=== PATIENT | female | born 1990 | race Caucasian/White ===

== ENCOUNTER 2020-03-06 16:08 | Outpatient (REF) | payer OTHER, SELFPAY ==
[2020-03-06 19:24] LABS: LDL CHOLESTEROL 108 mg/dL (<100); TSH 2.02 uIU/mL (0.36-3.74)
[2020-03-06 19:45] LABS: FREE T4 0.97 ng/dL (0.76-1.46)
[2020-03-07 16:54] LABS: T3, Total 126 ng/dL (97-169)
== END 2020-03-06 16:28 ==
LOC: NCHCN 16:08
PROVIDERS: Student in an Organized Health Care Education/Training Program; Visit Provider Nurse Practitioner Family
DX: E03.9 Hypothyroidism, unspecified (principal)
CPT/HCPCS: 83721; 84439; 84443; 84480

== ENCOUNTER 2020-04-09 22:15 | Outpatient (REF) | payer OTHER, SELFPAY ==
[2020-04-11 14:54] LABS: COVID-19 RT-PCR Result NEGATIVE (Negative)
== END 2020-04-09 22:35 ==
LOC: NCHCN 22:15
PROVIDERS: Visit Provider Internal Medicine
DX: Z11.59 Encounter for screening for other viral diseases (principal)
CPT/HCPCS: U0003

== ENCOUNTER 2020-04-15 13:25 | Outpatient (REF) | payer OTHER, SELFPAY ==
[2020-04-16 03:42] LABS: COVID-19 RT-PCR UVMMC Result Negative (Negative)
== END 2020-04-15 13:45 ==
LOC: NCHCN 13:25
PROVIDERS: Visit Provider Nurse Practitioner Family
DX: Z11.59 Encounter for screening for other viral diseases (principal)
CPT/HCPCS: U0003

== ENCOUNTER 2020-05-07 12:28 | Outpatient (REF) | payer OTHER, SELFPAY ==
[2020-05-07 19:56] LABS: FREE T4 1.13 ng/dL (0.76-1.46); TSH 0.27 uIU/mL (0.36-3.74)
[2020-05-08 18:01] LABS: T3, Total 199 ng/dL (97-169)
== END 2020-05-07 12:48 ==
LOC: LBN 12:28
PROVIDERS: Visit Provider Student in an Organized Health Care Education/Training Program
DX: E03.9 Hypothyroidism, unspecified (principal)
CPT/HCPCS: 84439; 84443; 84480

== ENCOUNTER 2020-06-11 10:03 | Outpatient (REF) | payer OTHER, SELFPAY ==
[2020-06-11 21:54] LABS: HCT 41.8 % (36.0-46.0); HGB 13.6 g/dL (11.2-15.7); MCH 29.4 pg (27.0-33.0); MCHC 32.5 % (32.0-36.0); MCV 90.3 fL (80-95); Platelet Count 268 10^3/uL (130-400); RBC 4.63 10^6/uL (3.93-5.22); RDW 12.1 % (11.7-14.6); WBC 4.69 10^3/uL (4.4-10.8)
[2020-06-11 22:22] LABS: Iron 74 ug/dL (50-170)
[2020-06-11 22:34] LABS: ALT 23 U/L (14-59); AST 15 U/L (15-37); Albumin 4.4 g/dL (3.4-5.0); Alkaline Phosphatase 54 U/L (46-116); Anion Gap 9.4 mmol/L (3-11); BUN 14 mg/dL (7-18); Bilirubin, Total 0.2 mg/dL (0.2-1.0); C-Reactive Protein 0.37 mg/dL (0.0-0.3); CO2 25.6 mmol/L (21.0-32.0); CREATININE 0.78 mg/dL (0.55-1.02); Calcium 8.7 mg/dL (8.5-10.1); Chloride 104 mmol/L (98-107); Glucose 96 mg/dL (74-106); Potassium 4.2 mmol/L (3.5-5.1); Sodium 139 mmol/L (136-145); Total Protein 7.3 g/dL (6.4-8.2)
[2020-06-11 22:39] LABS: ESR 23 mm/hr (0-20)
[2020-06-12 01:18] LABS: Calculated LDL 135 mg/dL (<100); Cholesterol 194 mg/dL (<200); HDL Cholesterol 50 mg/dL (40-60); Triglyceride 49 mg/dL (<150); Vitamin B12 1907 pg/mL (193-986)
== END 2020-06-11 10:23 ==
LOC: NCHCN 10:03
PROVIDERS: PCP Nurse Practitioner Family; Visit Provider Nurse Practitioner Family
DX: R53.83 Other fatigue (principal); E89.0 Postprocedural hypothyroidism
CPT/HCPCS: 80053; 80061; 85027; 85652; 82607; 83540; 86140

== ENCOUNTER 2020-08-05 09:39 | Outpatient (REF) | payer OTHER, SELFPAY ==
[2020-08-05 20:31] LABS: Abs Immature Grans 0.01 10^3/uL (0.0-0.06); Absolute Basophil Count 0.02 10^3/uL (0.0-0.2); Absolute Eosinophil Count 0.09 10^3/uL (0.0-0.7); Absolute Lymphocyte Count 1.16 10^3/uL (1.2-3.4); Absolute Monocyte Count 0.45 10^3/uL (0.1-0.8); Absolute Neutrophil Count 3.23 10^3/uL (1.2-6.7); Basophils % 0.4; Eosinophils % 1.8; HCT 38.4 % (36.0-46.0); HGB 12.8 g/dL (11.2-15.7); Immature Grans % 0.2; Lymphocytes % 23.4; MCH 29.9 pg (27.0-33.0); MCHC 33.3 % (32.0-36.0); MCV 89.7 fL (80-95); MPV 10.8 fL (8.0-11.0); Monocytes % 9.1; Neutrophils % 65.1; Nucleated RBC 0 %; Platelet Count 287 10^3/uL (130-400); RBC 4.28 10^6/uL (3.93-5.22); RDW 13.1 % (11.7-14.6); RDW-SD 42.9 fL; WBC 4.96 10^3/uL (4.4-10.8)
[2020-08-05 20:55] LABS: Iron 71 ug/dL (50-170); Total Iron Binding Capacity 344 ug/dL (250-450); Transferrin Sat 21 % (15-50)
[2020-08-05 21:02] LABS: Ferritin 72 ng/mL (8-252); TSH 0.73 uIU/mL (0.36-3.74)
[2020-08-06 18:01] LABS: T3, Total 167 ng/dL (97-169)
[2020-08-08 03:36] LABS: SARS-CoV-2 RNA Undetected (Undetected); SARS-CoV-2 Specimen Source Nasal
== END 2020-08-05 09:59 ==
LOC: NCHCN 09:39
PROVIDERS: Internal Medicine; PCP Nurse Practitioner Family; Visit Provider Nurse Practitioner Family
DX: F41.8 Other specified anxiety disorders (principal); E89.0 Postprocedural hypothyroidism; Z11.59 Encounter for screening for other viral diseases
CPT/HCPCS: U0003; 82728; 83540; 83550; 84439; 84443; 84480; 85025

== ENCOUNTER 2020-08-21 11:36 | Outpatient (REF) | payer OTHER, SELFPAY | END 2020-08-21 11:56 | LOC: NCHCN 11:36 | PROVIDERS: PCP Nurse Practitioner Family; Visit Provider Nurse Practitioner Family | DX: N30.00 Acute cystitis without hematuria (principal) | CPT/HCPCS: 87077; 87086; 87186 ==

== ENCOUNTER 2020-09-10 17:31 | Outpatient (REF) | payer OTHER, SELFPAY | END 2020-09-10 17:51 | LOC: NCHCN 17:31 | PROVIDERS: PCP Nurse Practitioner Family; Visit Provider Nurse Practitioner Family | DX: R30.0 Dysuria (principal) | CPT/HCPCS: 87480; 87510; 87660 ==

== ENCOUNTER 2020-09-18 19:48 | Outpatient (REF) | payer SELFPAY ==
[2020-09-21 11:46] LABS: SARS-CoV-2 RNA Not Detected (NotDetected); SARS-CoV-2 RNA Source Nasal/Nares
== END 2020-09-18 20:08 ==
LOC: NCHCN 19:48
PROVIDERS: PCP Nurse Practitioner Family; Visit Provider Nurse Practitioner Family
DX: Z20.828 Contact with and (suspected) exposure to other viral communicable diseases (principal)
CPT/HCPCS: U0003

== ENCOUNTER 2020-10-01 13:53 | Outpatient (REF) | payer OTHER, SELFPAY ==
[2020-10-05 17:32] LABS: SARS-CoV-2 RNA Undetected (Undetected); SARS-CoV-2 Specimen Source Nasal
== END 2020-10-01 14:13 ==
LOC: NCHCN 13:53
PROVIDERS: PCP Nurse Practitioner Family; Visit Provider Nurse Practitioner Family
DX: Z11.59 Encounter for screening for other viral diseases (principal)
CPT/HCPCS: U0003

== ENCOUNTER 2020-11-12 15:08 | Outpatient (REF) | payer OTHER, SELFPAY ==
[2020-11-12 20:54] LABS: FREE T4 1.21 ng/dL (0.76-1.46); TSH 0.47 uIU/mL (0.36-3.74)
[2020-11-13 17:20] LABS: T3, Total 216 ng/dL (97-169)
== END 2020-11-12 15:28 ==
LOC: NCHCN 15:08
PROVIDERS: PCP Nurse Practitioner Family; Visit Provider Physician Assistant
DX: E89.0 Postprocedural hypothyroidism (principal)
CPT/HCPCS: 84439; 84443; 84480

== ENCOUNTER 2020-11-24 12:54 | Outpatient (REF) | payer OTHER, SELFPAY ==
[2020-11-25 21:53] LABS: COVID-19 RT-PCR Result NEGATIVE (Negative)
== END 2020-11-24 13:14 ==
LOC: NCHCN 12:54
PROVIDERS: PCP Nurse Practitioner Family; Visit Provider Internal Medicine
DX: Z20.822 Contact with and (suspected) exposure to COVID-19 (principal)
CPT/HCPCS: U0003

== ENCOUNTER 2020-12-09 14:01 | Outpatient (REF) | payer OTHER, SELFPAY ==
[2020-12-10 18:36] LABS: COVID-19 RT-PCR UVMMC Result Negative (Negative)
== END 2020-12-09 14:21 ==
LOC: NCHCN 14:01
PROVIDERS: PCP Nurse Practitioner Family; Visit Provider Nurse Practitioner Family
DX: Z20.828 Contact with and (suspected) exposure to other viral communicable diseases (principal)
CPT/HCPCS: U0003

== ENCOUNTER 2020-12-19 19:02 | Outpatient (REF) | payer OTHER, SELFPAY ==
[2020-12-19 19:44] LABS: FREE T4 1.44 ng/dL (0.76-1.46); TSH 0.58 uIU/mL (0.36-3.74)
[2020-12-20 22:48] LABS: T3, Total 130 ng/dL (97-169)
== END 2020-12-19 19:03 | disposition home or self-care (01) ==
LOC: NCHCN 19:02
PROVIDERS: PCP Nurse Practitioner Family; Visit Provider Internal Medicine
DX: E89.0 Postprocedural hypothyroidism (principal)
CPT/HCPCS: 84439; 84443; 84480

== ENCOUNTER 2021-01-12 18:48 | Outpatient (REF) | payer OTHER, SELFPAY ==
[2021-01-14 12:25] LABS: COVID-19 RT-PCR UVMMC Result Negative (Negative)
== END 2021-01-12 18:49 | disposition home or self-care (01) ==
LOC: NCHCN 18:48
PROVIDERS: PCP Nurse Practitioner Family; Visit Provider Internal Medicine
DX: Z20.828 Contact with and (suspected) exposure to other viral communicable diseases (principal)
CPT/HCPCS: U0003

== ENCOUNTER 2021-03-03 18:56 | Outpatient (REF) | payer OTHER, SELFPAY ==
[2021-03-04 01:29] LABS: COVID-19 RT-PCR UVMMC Result Negative (Negative)
== END 2021-03-03 18:57 | disposition home or self-care (01) ==
LOC: NCHCN 18:56
PROVIDERS: PCP Nurse Practitioner Family; Visit Provider Nurse Practitioner Family
DX: Z20.822 Contact with and (suspected) exposure to COVID-19 (principal)
CPT/HCPCS: U0003

== ENCOUNTER 2021-03-10 13:24 | Outpatient (REF) | payer OTHER, SELFPAY ==
[2021-03-10 17:11] LABS: FREE T4 0.89 ng/dL (0.76-1.46); TSH 13.86 uIU/mL (0.36-3.74)
[2021-03-10 21:59] LABS: T3,Free 2.5 pg/mL (2.8-5.3)
[2021-03-10 22:13] LABS: T3, Total 100 ng/dL (97-169)
== END 2021-03-10 13:25 | disposition home or self-care (01) ==
LOC: LBN 13:24
PROVIDERS: PCP Nurse Practitioner Family; Visit Provider Internal Medicine Endocrinology, Diabetes & Metabolism
DX: E03.9 Hypothyroidism, unspecified (principal); C73 Malignant neoplasm of thyroid gland
CPT/HCPCS: 84439; 84443; 84480; 84481

== ENCOUNTER 2021-05-13 13:47 | Outpatient (REF) | payer OTHER, SELFPAY ==
[2021-05-13 21:16] LABS: FREE T4 0.87 ng/dL (0.76-1.46)
[2021-05-13 21:19] LABS: TSH 37.24 uIU/mL (0.36-3.74)
== END 2021-05-13 13:48 | disposition home or self-care (01) ==
LOC: NCHCN 13:47
PROVIDERS: Internal Medicine Endocrinology, Diabetes & Metabolism; PCP Nurse Practitioner Family; Visit Provider Internal Medicine
DX: E89.0 Postprocedural hypothyroidism; Z85.850 Personal history of malignant neoplasm of thyroid
CPT/HCPCS: 84439; 84443

== ENCOUNTER 2021-06-19 17:44 | Outpatient (REF) | payer OTHER, SELFPAY ==
[2021-06-19 18:50] LABS: TSH 10.54 uIU/mL (0.36-3.74)
== END 2021-06-19 17:45 | disposition home or self-care (01) ==
LOC: NCHCN 17:44
PROVIDERS: PCP Nurse Practitioner Family; Visit Provider Internal Medicine
DX: E89.0 Postprocedural hypothyroidism (principal)
CPT/HCPCS: 84443

== ENCOUNTER 2021-07-22 14:35 | Outpatient (REF) | payer OTHER, SELFPAY | END 2021-07-22 14:36 | disposition home or self-care (01) | LOC: NCHCN 14:35 | PROVIDERS: PCP Nurse Practitioner Family; Referring Provider Nurse Practitioner Family; Visit Provider Nurse Practitioner Family | DX: N30.00 Acute cystitis without hematuria (principal) | CPT/HCPCS: 87086 ==

== ENCOUNTER 2021-07-29 12:33 | Outpatient (REF) | payer OTHER, SELFPAY ==
[2021-07-29 20:36] LABS: ALT 25 U/L (14-59); AST 16 U/L (15-37); Albumin 3.8 g/dL (3.4-5.0); Alkaline Phosphatase 37 U/L (46-116); Anion Gap 9.5 mmol/L (3-11); BUN 11 mg/dL (7-18); Bilirubin, Total 0.3 mg/dL (0.2-1.0); CO2 26.5 mmol/L (21.0-32.0); CREATININE 0.9 mg/dL (0.55-1.02); Calcium 8.9 mg/dL (8.5-10.1); Chloride 103 mmol/L (98-107); Glucose 85 mg/dL (74-106); Potassium 4.4 mmol/L (3.5-5.1); Sodium 139 mmol/L (136-145); TSH 38.42 uIU/mL (0.36-3.74); Total Protein 7.3 g/dL (6.4-8.2)
== END 2021-07-29 12:34 | disposition home or self-care (01) ==
LOC: NCHCN 12:33
PROVIDERS: PCP Nurse Practitioner Family; Visit Provider Internal Medicine
DX: E89.0 Postprocedural hypothyroidism (principal)
CPT/HCPCS: 80053; 84443

== ENCOUNTER 2021-07-30 17:03 | Outpatient (REF) | payer OTHER, SELFPAY ==
[2021-07-30 19:06] LABS: Abs Immature Grans 0.02 10^3/uL (0.0-0.06); Absolute Basophil Count 0.04 10^3/uL (0.0-0.2); Absolute Eosinophil Count 0.01 10^3/uL (0.0-0.7); Absolute Lymphocyte Count 1.73 10^3/uL (1.2-3.4); Absolute Monocyte Count 0.42 10^3/uL (0.1-0.8); Absolute Neutrophil Count 5.12 10^3/uL (1.2-6.7); Basophils % 0.5; Eosinophils % 0.1; HCT 39.9 % (36.0-46.0); Immature Grans % 0.3; Lymphocytes % 23.6; MCH 29.6 pg (27.0-33.0); MCHC 32.6 % (32.0-36.0); MCV 90.9 fL (80-95); MPV 11.6 fL (8.0-11.0); Monocytes % 5.7; Neutrophils % 69.8; Nucleated RBC 0 %; Platelet Count 274 10^3/uL (130-400); RBC 4.39 10^6/uL (3.93-5.22); RDW 11.9 % (11.7-14.6); RDW-SD 39.8 fL; WBC 7.34 10^3/uL (4.4-10.8)
== END 2021-07-30 17:04 | disposition home or self-care (01) ==
LOC: NCHCN 17:03
PROVIDERS: PCP Nurse Practitioner Family; Visit Provider Nurse Practitioner Family
DX: R10.11 Right upper quadrant pain (principal)
CPT/HCPCS: 85025

== ENCOUNTER 2021-09-18 12:47 | Outpatient (REF) | payer OTHER, SELFPAY ==
[2021-09-18 19:33] LABS: TSH 3.12 uIU/mL (0.36-3.74)
== END 2021-09-18 12:48 | disposition home or self-care (01) ==
LOC: NCHCN 12:47
PROVIDERS: PCP Nurse Practitioner Family; Visit Provider Internal Medicine
DX: E89.0 Postprocedural hypothyroidism (principal)
CPT/HCPCS: 84443

== ENCOUNTER 2021-10-26 19:09 | Outpatient (REF) | payer OTHER, SELFPAY ==
[2021-10-27 21:22] LABS: COVID-19 RT-PCR UVMMC Result Negative (Negative)
== END 2021-10-26 19:10 | disposition home or self-care (01) ==
LOC: NCHCN 19:09
PROVIDERS: PCP Nurse Practitioner Family; Visit Provider Nurse Practitioner Family
DX: Z20.822 Contact with and (suspected) exposure to COVID-19 (principal)
CPT/HCPCS: U0003

== ENCOUNTER 2021-11-10 17:54 | Outpatient (REF) | payer OTHER, SELFPAY ==
[2021-11-10 20:51] LABS: TSH 3.67 uIU/mL (0.36-3.74)
== END 2021-11-10 17:55 | disposition home or self-care (01) ==
LOC: NCHCN 17:54
PROVIDERS: PCP Nurse Practitioner Family; Visit Provider Internal Medicine
DX: E89.0 Postprocedural hypothyroidism (principal)
CPT/HCPCS: 84443

== ENCOUNTER 2022-02-10 13:41 | Outpatient (REF) | payer OTHER, SELFPAY ==
[2022-02-10 21:50] LABS: FREE T4 1.54 ng/dL (0.76-1.46); TSH 1.19 uIU/mL (0.36-3.74)
== END 2022-02-10 13:42 | disposition home or self-care (01) ==
LOC: NCHCN 13:41
PROVIDERS: Internal Medicine; PCP Nurse Practitioner Family; Visit Provider Physician Assistant Medical
DX: E89.0 Postprocedural hypothyroidism (principal)
CPT/HCPCS: 84439; 84443

== ENCOUNTER 2022-04-14 20:49 | Outpatient (REF) | payer OTHER, SELFPAY ==
[2022-04-14 21:20] LABS: FREE T4 1.14 ng/dL (0.76-1.46); TSH 2.63 uIU/mL (0.36-3.74)
== END 2022-04-14 20:50 | disposition home or self-care (01) ==
LOC: NCHCN 20:49
PROVIDERS: PCP Nurse Practitioner Family; Visit Provider Internal Medicine
DX: E89.0 Postprocedural hypothyroidism (principal)
CPT/HCPCS: 84439; 84443

== ENCOUNTER 2022-11-02 15:50 | Outpatient (REF) | payer OTHER, SELFPAY ==
[2022-11-02 19:37] LABS: TSH (W/Ref FT4) 6.22 uIU/mL (0.36-3.74)
[2022-11-04 16:57] LABS: Thyroglobulin Antibody <1.8 IU/mL (<1.8); Thyroglobulin Tumor Marker 0.3 ng/mL
== END 2022-11-02 15:51 | disposition home or self-care (01) ==
LOC: NCHCN 15:50
PROVIDERS: PCP Nurse Practitioner Family; Visit Provider Internal Medicine
DX: E89.0 Postprocedural hypothyroidism (principal); Z85.850 Personal history of malignant neoplasm of thyroid
CPT/HCPCS: 84432; 84439; 84443; 86800

== ENCOUNTER 2022-12-10 12:21 | Outpatient (REF) | payer BC, SELFPAY ==
[2022-12-10 19:36] LABS: TSH 2.08 uIU/mL (0.36-3.74)
== END 2022-12-10 12:22 | disposition home or self-care (01) ==
LOC: NCHCN 12:21
PROVIDERS: PCP Nurse Practitioner Family; Visit Provider Internal Medicine
DX: E89.0 Postprocedural hypothyroidism (principal)
CPT/HCPCS: 84443

== ENCOUNTER 2023-04-29 19:08 | Outpatient (REF) | payer BC, SELFPAY ==
[2023-04-29 19:37] LABS: Calculated LDL 117 mg/dL (<100); Cholesterol 189 mg/dL (<200); Glucose 89 mg/dL (74-106); HDL Cholesterol 54 mg/dL (40-60); Triglyceride 94 mg/dL (<150)
== END 2023-04-29 19:09 | disposition home or self-care (01) ==
LOC: NCHCN 19:08
PROVIDERS: PCP Nurse Practitioner Family; Visit Provider Internal Medicine
DX: Z00.00 Encounter for general adult medical examination without abnormal findings (principal); Z13.220 Encounter for screening for lipoid disorders; Z13.1 Encounter for screening for diabetes mellitus
CPT/HCPCS: 80061; 82947

== ENCOUNTER 2023-10-27 09:04 | Outpatient (REF) | payer BC, SELFPAY ==
--- OUTSIDE RECORDS SUMMARY | 2023-10-27 09:12 | XMS_ITS | Continuity of Care Document ---
Author Name Unknown Organization [facility] Address [address] [place] [id number] Care Team Providers Care Aluminum Sheet Cutter Name Role Phone LACHO KRUEGER Primary Care Physician Encounter [facility] NBR [id number] Date(s): 08/23/22 - 08/23/[address] [phone] Discharge Disposition: Home or Self Care Attending Physician: Iveth Martinez APRN Admitting Physician: Iveth Martinez APRN Patient Care team information Personnel Name: LACHO KRUEGER Address: Address: [address] [place] [id number]
--- OUTSIDE RECORDS SUMMARY | 2023-10-27 09:12 | XMS_ITS | Continuity of Care Document ---
Author Name Unknown Organization [facility] Address [address] [place] [address] Care Team Providers Care Hotel Night Auditor Name Role Phone Iveth Martinez APRN Primary Care Physician [id number] Date(s): 09/05/23 - 09/05/23 [facility] [address] [place], [place] [address] Encounter Diagnosis Visit for gynecologic examination(Discharge Diagnosis) - 09/05/23 History of vitamin B deficiency(Discharge Diagnosis) - 09/05/23 History of vitamin D deficiency(Discharge Diagnosis) - 09/05/23 History of iron deficiency(Discharge Diagnosis) - 09/05/23 Hypothyroidism(Discharge Diagnosis) - 09/05/23 Discharge Disposition: Home or Self Care Attending Physician: Iveth Martinez APRN Allergies, Adverse Reactions, Alerts Substance Reaction Severity Status Sulfur Rash Moderate Active Assessment and Plan Future Appointments Future Scheduled Tests Laboratory* Vitamin D 25 Hydroxy Level 09/05/23 * Comprehensive Metabolic Panel 09/05/23 * Iron Panel 09/05/23 * Vitamin B12 & Folate Level 09/05/23 * CBC w/o Diff 09/05/23 Medications hydrOXYzine hydrochloride 25 mg oral tablet 25 mg = 1 tab, Oral, Daily, at as needed for sleep, # 30 tab, 0 Refill(s) Start Date: 09/05/23 Status: Ordered Nextstellis 3 mg-14.2 mg oral tablet 1 tab, Oral, Daily, # 84 tab, 4 Refill(s), Pharmacy: [facility] #[id number] Start Date: 05/05/23 Stop Date: 06/28/24 Status: Ordered Synthroid 137 mcg (0.137 mg) oral tablet 137 mcg = 1 tab, Oral, Daily, # 30 tab, 0 Refill(s) Start Date: 09/05/23 Status: Ordered Procedures Procedure Date Related Diagnosis Body Site Status Appendectomy 2020 Completed Thyroidectomy 06/2018 Completed 1for thyroid cancer Vital Signs Most recent to oldest [Reference Range]: 1 Blood Pressure [90-140/60-90 mmHg] 116/7 8mmHg (09/05/23 10:34 AM) Mean Arterial Pressure, Cuff [65-140 mmH g] 91 mmHg (09/05/23 10:34 AM) Weight 53.7 kg (09/05/23 10:34 AM) Weight Measured (lbs) 118.388 lb (09/05/23 10:34 AM) [place] Body Weight Calculated 45.5 kg (09/05/23 10:34 AM) Height 149.86 cm (09/05/23 10:34 AM) Height/Length Measured (inches) 59 inch (09/05/23 10:34 AM) BSA Measured 1.5 m2 (09/05/23 10:34 AM) Body Mass Index 23.91 kg/m2 (09/05/23 10:34 AM) Social History Social History Type Response Smoking Status Smoking tobacco use: Never tobacco user;Never entered on: 09/05/23 Sex Patient Care team information Care Team Personnel Name: Iveth Martinez APRN Position: Physician - Women's Health Member Role: Primary Care Physician Address: Address: [address] [place] [phone] [place]
--- OUTSIDE RECORDS SUMMARY | 2023-10-27 09:12 | XMS_ITS | Continuity of Care Document ---
Author Name Unknown Organization [facility] Address [address] [place] [id number] Care Team Providers Care Lining Vamper Name Role Phone Michelle SO, Iveth Burger Primary Care Physician Encounter [facility] NBR [id number] Date(s): 09/19/23 - 09/19/23 [facility] [address], [place] [phone] Discharge Disposition: Home or Self Care Attending Physician: Iveth Martinez APRN Admitting Physician: Iveth Martinez APRN Referring Physician: Iveth Martinez APRN Allergies, Adverse Reactions, Alerts Substance Reaction Severity Status Sulfur Rash Moderate Active Assessment and Plan Future Appointments Medications hydrOXYzine hydrochloride 25 mg oral tablet 25 mg = 1 tab, Oral, Daily, at hs as needed for sleep, # 30 tab, 0 Refill(s) Start Date: 09/05/23 Status: Ordered Nextstellis 3 mg-14.2 mg oral tablet 1 tab, Oral, Daily, # 84 tab, 4 Refill(s), [facility]acy: [facility] #[id number] Start Date: 05/05/23 Stop Date: 06/28/24 Status: Ordered Synthroid 137 mcg (0.137 mg) oral tablet 137 mcg = 1 tab, Oral, Daily, # 30 tab, 0 Refill(s) Start Date: 09/05/23 Status: Ordered Procedures Procedure Date Related Diagnosis Body Site Status Appendectomy 2020 Completed Thyroidectomy 06/2018 Completed 1for thyroid cancer Results Laboratory List Name Date CBC w/o Diff 09/19/23 Comprehensive Metabolic Panel (CMP) 09/19 Iron Panel 09/19/23 Vitamin B12 & Folate Level 09/19/23 Vitamin D 25 Hydroxy Level 09/19/23 Most recent to oldest [Reference Range]: 1 WBC [4.8-10.8 K/mcL] 4.8 K/mcL (09/19/23 10:25 AM) RBC [4.20-5.40 Million/mcL] 4.56 Million /mcL (09/19/23 10:25 AM) BUN [8-26 mg/dL] 9 mg/dL (09/19/23 10:25 AM) Glucose Level [74-106 mg/dL] 83 mg/dL (09/19/23: AM) Potassium Level [3.5-5.1 mmol/L] 4.2 mmo l/L (09/19/23: AM) MCV [81.0-99.0 fL] 90.4 fL (09/19/23 AM) AST [15-41 IntlUnit/L] 19 IntlUnit/L (09/19/23: AM) ALT [14-54 IntlUnit/L] 16 IntlUnit/L (09/19/23: AM) MCHC [32.0-37.0 g/dL] 33.0 g/dL (09/19/23: AM) Osmolality [275-295 mOsm/kg] 268 mOsm/kg *LOW* (09/19/23: AM) Sodium Level [134-143 mmol/L] 135 mmol/L (09/19/23:25 AM) Folate Level [>=5.9 ng/mL] 13.0 ng/mL (09/19/23: AM) Hct [37.0-47.0 %] 41.2 % (09/19/23: AM) Vitamin D 25 OH [30.0-100.0 ng/mL] 31.9 ng/mL 1 (09/19/23:25 AM) Calcium Level [8.9-10.3 mg/dL] 9.4 mg/dL (09/19/23:25 AM) Albumin Level [3.5-5.0 g/dL] 4.2 g/dL (09/19/23 10:25 AM) Protein Total [6.5-8.1 g/dL] 7.1 g/dL (09/19/23:25 AM) Iron Sat [20-55 %] 38 % (09/19/23 10:25 AM) MCH [27.0-31.0 pg] 29.8 pg (09/19/23 10:25 AM) Bilirubin Total [0.2-1.2 mg/dL] 0.7 mg/d L (09/19/23 10:25 AM) Hgb [12.0-16.0 g/dL] 13.6 g/dL (09/19/23 10:25 AM) Transferrin [192-382 mg/dL] 319 mg/dL (09/19/23 10:25 AM) B12 Level [180-914 pg/mL] 339 pg/mL (09/19/23 10:25 AM) Alk Phos [38-130 IntlUnit/L] 49 IntlUnit /L (09/19/23 10:25 AM) MPV [7.4-10.4 fL] 11.1 fL *HI* (09/19/23 10:25 AM) Platelets [130-400 K/mcL] 234 K/mcL (09/19/23 10:25 AM) CO2 [22-32 mmol/L] 24 mmol/L (09/19/23 10:25 AM) TIBC 447 *NA* (09/19/23 10:25 AM) Iron [28-170 mcg/dL] 171 mcg/dL *HI* (09/19/23 10:25 AM) Chloride Level [98-111 mmol/L] 102 mmol/ L (09/19/23 10:25 AM) RDW-CV [11.5-14.5 %] 12.3 % (09/19/23 10:25 AM) A/G Ratio [1.0-2.5 g/dL] 1.4 g/dL (09/19/23 10:25 AM) BUN/Creat Ratio [8.0-20.0] 16.1 (09/19/23 10:25 AM) Globulin [2.3-3.5 g/dL] 2.9 g/dL (09/19/23 10:25 AM) Creatinine Level [0.44-1.00 mg/dL] 0.56 mg/dL (09/19/23 10:25 AM) Anion Gap [3.0-12.0] 9.0 (09/19/23 10:25 AM) eGFR CKD-EPI [>=60 mL/min/1.73 m2] 124 m L/min/1.73 m2 (09/19/23 10:25 AM) 1Interpretive Data: VIT D STATUS: RANGE: Deficient <20 ng/mL Insufficiency 20-30 ng/mL Sufficiency 30-100 ng/mL Toxicity >100 ng/mL Patients that have undergone flourescein dye angiography without allowing enough time for clearanceof the flourescein dye may have falsely elevated Vitamin D levels. Social History Social History Type Response Smoking Status Smoking tobacco use: Never tobacco user;Never entered on: 09/05/23 Sex Patient Care team information Care Team Personnel Name: Iveth Martinez APRN Position: Physician - Women's Health Member Role: Primary Care Physician Address: Address: [address] [place] [phone] [place] Care Team Related Persons Name: NAHEED PANDEY Address: Home [address] [place] [id number] [facility] Name: PRESTON LANDRY
== END 2023-10-27 09:05 | disposition home or self-care (01) ==
LOC: LBN 09:04
PROVIDERS: PCP Nurse Practitioner Family; Visit Provider Internal Medicine
DX: R53.83 Other fatigue (principal)
CPT/HCPCS: 82533; 82024

== ENCOUNTER 2024-01-03 18:31 | Outpatient (REF) | payer BC, SELFPAY ==
[2024-01-03 20:09] LABS: TSH 0.64 uIU/mL (0.36-3.74)
== END 2024-01-03 18:32 | disposition home or self-care (01) ==
LOC: NCHCN 18:31
PROVIDERS: PCP Nurse Practitioner Family; Visit Provider Internal Medicine
DX: E03.9 Hypothyroidism, unspecified (principal)
CPT/HCPCS: 84443

== ENCOUNTER 2024-03-14 16:02 | Outpatient (REF) | payer BC, SELFPAY ==
[2024-03-14 22:20] LABS: ALT 26 U/L (14-59); AST 18 U/L (15-37); Albumin 4.1 g/dL (3.4-5.0); Alkaline Phosphatase 60 U/L (46-116); Bilirubin, Direct 0.1 mg/dL (0.0-0.2); Bilirubin, Total 0.3 mg/dL (0.2-1.0); Total Protein 7.5 g/dL (6.4-8.2)
[2024-03-15 19:00] LABS: Hepatitis B Surface Ag Negative (Negative)
[2024-03-15 19:34] LABS: HIV-1/2 Ag & Ab Screen Negative (Negative)
[2024-03-15 19:40] LABS: Hepatitis C Ab w Rflx HCV PCR Negative (Negative)
== END 2024-03-14 16:03 | disposition home or self-care (01) ==
LOC: NCHCN 16:02
PROVIDERS: PCP Nurse Practitioner Family; Visit Provider Internal Medicine
DX: W46.1XXA Contact with contaminated hypodermic needle, initial encounter (principal); T14.8XXA Other injury of unspecified body region, initial encounter; Z11.59 Encounter for screening for other viral diseases; Z11.4 Encounter for screening for human immunodeficiency virus [HIV]
CPT/HCPCS: 80076; 86803; 87340; 87389

== ENCOUNTER 2024-05-08 15:13 | Outpatient (REF) | payer BC, SELFPAY ==
[2024-05-09 20:15] LABS: Hepatitis B Surface Ag Negative (Negative)
[2024-05-09 20:42] LABS: Hepatitis C Ab w Rflx HCV PCR Negative (Negative)
[2024-05-09 20:48] LABS: HIV-1/2 Ag & Ab Screen Negative (Negative)
== END 2024-05-08 15:14 | disposition home or self-care (01) ==
LOC: NCHCN 15:13
PROVIDERS: PCP Nurse Practitioner Family; Visit Provider Internal Medicine
DX: T14.8XXA Other injury of unspecified body region, initial encounter (principal); Z11.59 Encounter for screening for other viral diseases; Z11.4 Encounter for screening for human immunodeficiency virus [HIV]; W46.0XXA Contact with hypodermic needle, initial encounter
CPT/HCPCS: 86803; 87340; 87389

== ENCOUNTER 2024-07-19 13:32 | Outpatient (REF) | payer BC, SELFPAY ==
[2024-07-19 20:03] LABS: TSH 0.99 uIU/Ml (0.36-3.74)
[2024-07-20 18:33] LABS: Thyroglobulin Antibody <15 U/mL (<=60)
== END 2024-07-19 13:33 | disposition home or self-care (01) ==
LOC: NCHCN 13:32
PROVIDERS: Internal Medicine; PCP Nurse Practitioner Family; Visit Provider Internal Medicine
DX: E03.9 Hypothyroidism, unspecified (principal)
CPT/HCPCS: 84443; 86800

== ENCOUNTER 2024-09-14 13:33 | Outpatient (REF) | payer BC, SELFPAY ==
[2024-09-14 20:03] LABS: TSH 0.15 uIU/mL (0.36-3.74)
== END 2024-09-14 13:34 | disposition home or self-care (01) ==
LOC: LBN 13:33
PROVIDERS: PCP Nurse Practitioner Family; Visit Provider Internal Medicine
DX: E03.9 Hypothyroidism, unspecified (principal)
CPT/HCPCS: 84443

== ENCOUNTER 2024-12-27 14:02 | Outpatient (REF) | payer SELFPAY ==
[2024-12-27 19:43] LABS: TSH 0.45 uIU/mL (0.36-3.74)
== END 2024-12-27 14:03 | disposition home or self-care (01) ==
LOC: NCHCN 14:02
PROVIDERS: PCP Nurse Practitioner Family; Visit Provider Internal Medicine
DX: E03.9 Hypothyroidism, unspecified (principal)
CPT/HCPCS: 84439; 84443

== ENCOUNTER 2025-01-24 15:11 | Outpatient (REF) | payer OTHER, SELFPAY ==
[2025-01-24 19:53] LABS: TSH 2.52 uIU/mL (0.36-3.74)
[2025-01-25 18:25] LABS: T4, Free 1.6 ng/dL (0.8-2.2)
== END 2025-01-24 15:12 | disposition home or self-care (01) ==
LOC: NCHCN 15:11
PROVIDERS: PCP Nurse Practitioner Family; Visit Provider Internal Medicine
DX: E03.9 Hypothyroidism, unspecified (principal)
CPT/HCPCS: 84439; 84443

== ENCOUNTER 2025-03-25 15:56 | Outpatient (REF) | payer OTHER, SELFPAY ==
[2025-03-25 19:02] LABS: FREE T4 1.23 ng/dL (0.76-1.46); TSH 2.08 uIU/mL (0.36-3.74)
== END 2025-03-25 15:57 | disposition home or self-care (01) ==
LOC: NCHCN 15:56
PROVIDERS: PCP Nurse Practitioner Family; Visit Provider Internal Medicine
DX: E03.9 Hypothyroidism, unspecified (principal)
CPT/HCPCS: 84439; 84443

== ENCOUNTER 2025-04-23 15:31 | Outpatient (REF) | payer OTHER, SELFPAY ==
[2025-04-23 21:05] LABS: TSH 4.18 uIU/mL (0.36-3.74)
== END 2025-04-23 15:32 | disposition home or self-care (01) ==
LOC: NCHCN 15:31
PROVIDERS: PCP Nurse Practitioner Family; Visit Provider Internal Medicine
DX: E03.9 Hypothyroidism, unspecified (principal)
CPT/HCPCS: 84443

== ENCOUNTER 2025-05-22 13:52 | Outpatient (REF) | payer OTHER, SELFPAY ==
[2025-05-22 20:55] LABS: TSH 1.55 uIU/mL (0.36-3.74)
== END 2025-05-22 13:53 | disposition home or self-care (01) ==
LOC: NCHCN 13:52
PROVIDERS: PCP Nurse Practitioner Family; Visit Provider Internal Medicine
DX: E03.9 Hypothyroidism, unspecified (principal)
CPT/HCPCS: 84439; 84443

== ENCOUNTER 2025-06-19 18:22 | Outpatient (REF) | payer OTHER, SELFPAY ==
[2025-06-19 21:20] LABS: TSH 0.47 uIU/mL (0.36-3.74)
== END 2025-06-19 18:23 | disposition home or self-care (01) ==
LOC: NCHCN 18:22
PROVIDERS: PCP Nurse Practitioner Family; Visit Provider Internal Medicine
DX: E03.9 Hypothyroidism, unspecified (principal)
CPT/HCPCS: 84439; 84443

== ENCOUNTER 2025-07-24 15:27 | Outpatient (REF) | payer OTHER, BC, SELFPAY ==
[2025-07-24 21:10] LABS: TSH 2.66 uIU/mL (0.36-3.74)
== END 2025-07-24 15:28 | disposition home or self-care (01) ==
LOC: NCHCN 15:27
PROVIDERS: PCP Nurse Practitioner Family; Visit Provider Internal Medicine
DX: E03.9 Hypothyroidism, unspecified (principal)
CPT/HCPCS: 84439; 84443

== ENCOUNTER 2025-08-14 20:16 | Outpatient (REF) | payer OTHER, BC, SELFPAY | END 2025-08-14 20:17 | disposition home or self-care (01) | LOC: NCHCN 20:16 | PROVIDERS: PCP Nurse Practitioner Family; Visit Provider Nurse Practitioner Family | DX: N89.8 Other specified noninflammatory disorders of vagina (principal) | CPT/HCPCS: 87480; 87510; 87660 ==

== ENCOUNTER 2025-08-27 19:24 | Outpatient (REF) | payer OTHER, SELFPAY ==
[2025-08-27 20:25] LABS: TSH 1.58 uIU/mL (0.36-3.74)
== END 2025-08-27 19:25 | disposition home or self-care (01) ==
LOC: NCHCN 19:24
PROVIDERS: PCP Nurse Practitioner Family; Visit Provider Internal Medicine
DX: E03.9 Hypothyroidism, unspecified (principal)
CPT/HCPCS: 84439; 84443

== ENCOUNTER 2025-10-01 19:24 | Outpatient (REF) | payer OTHER, SELFPAY ==
[2025-10-01 20:05] LABS: TSH (W/Ref FT4) 1.71 uIU/mL (0.55-4.78)
== END 2025-10-01 19:25 | disposition home or self-care (01) ==
LOC: NCHCN 19:24
PROVIDERS: PCP Nurse Practitioner Family; Visit Provider Internal Medicine
DX: E03.9 Hypothyroidism, unspecified (principal); Z85.850 Personal history of malignant neoplasm of thyroid
CPT/HCPCS: 84439; 84443